=== PATIENT | female | born 1950 | race Caucasian/White ===

== ENCOUNTER 2019-02-13 21:54 | Outpatient (REF) | payer MEDICARE, BC, SELFPAY ==
[2019-02-13 23:12] LABS: ALT 33 U/L (12-78); AST 23 U/L (15-37); Albumin 3.9 g/dL (3.4-5.0); Alkaline Phosphatase 57 U/L (46-116); Anion Gap 9.1 mmol/L (3-11); BUN 19 mg/dL (7-18); Bilirubin, Total 0.3 mg/dL (0.2-1.0); CO2 27.9 mmol/L (21.0-32.0); CREATININE 0.78 mg/dL (0.55-1.02); Calcium 8.9 mg/dL (8.5-10.1); Chloride 104 mmol/L (98-107); Glucose 91 mg/dL (70-100); Potassium 4.5 mmol/L (3.5-5.1); Sodium 141 mmol/L (136-145)
[2019-02-13 23:18] LABS: Hemoglobin A1C 6.1 % (4.5-6.2)
== END 2019-02-13 22:14 ==
LOC: NCHCN 21:54
PROVIDERS: PCP Physician Assistant Medical; Visit Provider Physician Assistant Medical
DX: R73.01 Impaired fasting glucose (principal)
CPT/HCPCS: 80053; 83036

== ENCOUNTER 2019-02-15 00:39 | Outpatient (CLI) | payer MEDICARE, BC, SELFPAY ==
--- NOTE | 2019-02-15 09:17 | DI.MAMMO_ITS ---
SYMPTOMS/DIAGNOSIS: ADULT PREVENTATIVE CARE, Z00.00, SCREENING, Z12.39 MAMMOGRAM: Mammograms were interpreted according to the usual protocol including computer analysis with CAD system, tomosynthesis and C view imaging. The breasts are of moderate density with fairly symmetrical distribution of fibroglandular tissue. No dominant mass is identified in either breast. There is a group of benign-appearing microcalcifications of the upper outer quadrant of the right breast, which appears stable in comparison with previous examinations including February 2017. No new clumped microcalcifications seen. CONCLUSION: No specific evidence of malignancy at this time. Routine screening examinations are suggested at yearly intervals in this age group according to the ACS/ACR guidelines. Category 1, breast density category B. MQSA ASSESSMENT OF FINDINGS: Negative. Category 1. Patient will receive a letter notifying them of these results. BI-RADS category B. There are scattered areas of fibroglandular density.
--- NOTE | 2019-02-15 09:21 | DI.RAD_ITS ---
SYMPTOM/DIAGNOSIS: RT SHOULDER PAIN, M25.511 RIGHT SHOULDER: Five views were obtained. There are mild hypertrophic degenerative changes of the AC joint. There are osteophytes also noted at the inferior margin of the glenoid and to a lesser degree on the humeral head consistent with degenerative change. Cartilaginous joint space of the glenohumeral joint appears fairly well maintained. CONCLUSION: Degenerative changes as described above.
== END 2019-02-15 00:59 ==
PROVIDERS: PCP Physician Assistant Medical; Visit Provider Physician Assistant Medical
DX: Z00.00 Encounter for general adult medical examination without abnormal findings (principal); Z12.31 Encounter for screening mammogram for malignant neoplasm of breast; M25.511 Pain in right shoulder; M19.011 Primary osteoarthritis, right shoulder
CPT/HCPCS: 77063; 77067; 73030

== ENCOUNTER → 2019-03-13 13:46 | Outpatient (BNVA) | payer MEDICARE, BC, SELFPAY | PROVIDERS: PCP Physician Assistant Medical; Referring Provider Physician Assistant Medical; Visit Provider Student in an Organized Health Care Education/Training Program | DX: M75.81 Other shoulder lesions, right shoulder (principal) | CPT/HCPCS: 20610; 99202; 99204; J1040 ==

== ENCOUNTER → 2019-05-01 12:55 | Outpatient (BNVA) | payer MEDICARE, BC, SELFPAY | PROVIDERS: Referring Provider Physician Assistant Medical; Visit Provider Student in an Organized Health Care Education/Training Program | DX: M75.81 Other shoulder lesions, right shoulder (principal); Z98.890 Other specified postprocedural states | CPT/HCPCS: 99213 ==

== ENCOUNTER → 2019-06-19 09:22 | Outpatient (BNVA) | payer MEDICARE, BC, SELFPAY | PROVIDERS: PCP Physician Assistant Medical; Referring Provider Physician Assistant Medical; Visit Provider Student in an Organized Health Care Education/Training Program | DX: M75.81 Other shoulder lesions, right shoulder (principal); Z98.890 Other specified postprocedural states | CPT/HCPCS: 99213 ==

== ENCOUNTER 2019-06-28 01:02 | Outpatient (CLI) | payer MEDICARE, BC, SELFPAY ==
--- NOTE | 2019-06-28 15:35 | DI.MRI_ITS ---
EXAM: MR UPPER JOINT RT WO CLINICAL HISTORY: ? rotator tear, rt shoulder pain, M25.511.,decreased range of motion TECHNIQUE: Multiplanar multisequence MRI was performed. The examination was carried out according to the usual protocol. COMPARISON: No exams were available for comparison FINDINGS: A full-thickness tear of the supraspinatus tendon and infraspinatus tendon measuring up to 2.1 cm AP is noted. There is a soft tissue 1.8 cm tendon retraction. The infraspinatus demonstrates additional mild tendinopathy more posteriorly. There is very mild subscapularis tendinopathy. The teres minor is intact. The biceps long head is intact and is normal in position. The glenohumeral ligament is unremarkable. There is no evidence of a gross tear of the glenoid labrum . The glenohumeral articular cartilage is intact. Mild degenerative bony changes are identified. Ther e is a very small glenohumeral joint effusion. The muscles are unremarkable. Note is made of a small fluid collection in the subacromial and deltoid bursa. IMPRESSION: Degenerative changes are identified. There is rotator cuff tendinopathy including a contiguous full- thickness tear of the supra and infraspinatus tendons. Very small glenohumeral joint effusion with a small fluid collection in the subacromial subdeltoid bursae is identified.
--- NOTE | 2019-06-28 16:03 | DI.VRAD_ITS ---
PROCEDURE INFORMATION: Exam: MR Right Upper Extremity Joint Without Contrast, Shoulder Exam date and time: 06/28/2019 3:46 PM Clinical history: 69 years old, female; Right; Patient HX: ? Rotator cuff tear, RT shoulder pain, decreased rom. TECHNIQUE: Imaging protocol: MR of the Right upper extremity without contrast. Exam focused on the shoulder. COMPARISON: CR XR shoulder RT complete 2+V 02/15/2019 9:21 AM FINDINGS: TENDONS: Supraspinatus: A contiguous full-thickness tear involves the supraspinatus and infraspinatus tendons, measuring up to 2.1 cm AP, with soft tissue 1.8 cm tendon retraction. Infraspinatus: The infraspinatus demonstrates additional mild tendinopathy more posteriorly. Subscapularis: There is very mild subscapularis tendinopathy. Teres minor: Unremarkable. No evidence of tear. Biceps brachii, long head: Intact and normal in position. LIGAMENTS: Glenohumeral: Unremarkable. Glenoid labrum: No gross tear of the glenoid labrum is evident. Cartilage: The glenohumeral articular cartilage is intact. Bones/joints: There is mild acromioclavicular arthrosis. There is very mild osteophyte formation about the glenohumeral joint. There are mild productive and degenerative cystic changes along the greater tuberosity. Fluid: There is a very small glenohumeral joint effusion. Muscles: Unremarkable. Soft tissues: Small fluid is present in the subacromial, subdeltoid bursa. IMPRESSION: 1. Degenerative changes as described. 2. Rotator cuff tendinopathy as described, including contiguous full-thickness tear of the supraspinatus and infraspinatus tendons. 3. Very small glenohumeral joint effusion with small fluid in the subacromial, subdeltoid bursa. Dictated and Authenticated by: Mahendra Vega MD. Ordering:GERSON Frey MD
== END 2019-06-28 01:22 ==
PROVIDERS: PCP Physician Assistant Medical; Visit Provider Student in an Organized Health Care Education/Training Program
DX: M25.511 Pain in right shoulder (principal); M75.101 Unspecified rotator cuff tear or rupture of right shoulder, not specified as traumatic; M19.011 Primary osteoarthritis, right shoulder; M25.411 Effusion, right shoulder
CPT/HCPCS: 73221

== ENCOUNTER → 2019-07-06 09:43 | Outpatient (BNVA) | payer MEDICARE, BC, SELFPAY | PROVIDERS: PCP Physician Assistant Medical; Referring Provider Physician Assistant Medical; Visit Provider Student in an Organized Health Care Education/Training Program | DX: M75.121 Complete rotator cuff tear or rupture of right shoulder, not specified as traumatic (principal); Z98.890 Other specified postprocedural states | CPT/HCPCS: 99213 ==

== ENCOUNTER → 2019-07-11 13:39 | Outpatient (BNVA) | payer MEDICARE, BC, SELFPAY | PROVIDERS: PCP Physician Assistant Medical; Referring Provider Physician Assistant Medical; Visit Provider Student in an Organized Health Care Education/Training Program | DX: M75.121 Complete rotator cuff tear or rupture of right shoulder, not specified as traumatic (principal); M75.51 Bursitis of right shoulder; M75.21 Bicipital tendinitis, right shoulder | CPT/HCPCS: 99214 ==

== ENCOUNTER 2019-07-20 05:53 | Day surgery (SDC) | payer MEDICARE, BC, SELFPAY ==
[2019-07-20] VITALS (8 sets, daily range): BP systolic 92–135; BP diastolic 50–88; PULSE 67–80; RESP 14–20; TEMP 36.1–36.7; O2SAT 93–98
[2019-07-20] MEDS: Lactated Ringers 1,000 ML 100 ML IV (06:45)
--- NOTE | 2019-07-20 07:01 | W.PM.DSUDISC ---
Discharge Plan Disposition Patient Disposition: HOME Condition: Stable Discharge Details Reason For Visit: Right rotator cuff surgery Attending Provider: Christiano Correia Primary Care Provider: Chelsea Santillan Home Meds and New Rx's Prescriptions: New aspirin 81 mg tablet,delayed release (DR/EC) 81 mg PO DAILY Qty: 30 RF: 0 naproxen 250 mg tablet 250 mg PO BID PRN (Reason: pain, moderate) Qty: 60 RF: 0 oxycodone 5 mg tablet 5 mg PO Q4H PRN (Reason: pain, severe) Qty: 22 RF: 0 Continued alendronate [Fosamax] 70 mg tablet 70 mg PO QWEEK RF: 0 multivitamin Tablet 1 tab PO DAILY RF: 0 calcium carbonate [Calcium 500] 500 mg calcium (1,250 mg) Tablet RF: 0 acetaminophen [Tylenol] 325 mg Capsule 325 mg PO ONCE PRNRF: 0 Discontinued ibuprofen [Advil] 200 mg Tablet 200 mg PO PRN PRNRF: 0 Discharge Instructions Additional Instructions: Surgery: Shoulder arthroscopy with rotator cuff repair and biceps tenodesis Activity: You should keep your arm at your side in the strike zone at all times except for physical therapy. Do not try to lift or raise your arm using your own muscles. You should use the sling whenever you are out of the house. You may have to adjust the abduction pillow or remove it for comfort. At home it is best to remove the sling and rest the arm on a pillow at your side or support the operative side with your other hand. You may allow the arm to dangle at your side. A physical therapy prescription will be provided separately. See prescribed medications above. You may use [id number] Tylenol (acetaminophen) as needed for mild pain. Also, recommend Colace (docusate) as a stool softener as surgery and pain medicine cause constipation. Dressings: Leave all dressings in place for 2-3 days. May then remove and leave open to air or cover incisions with Band-Aids. Sutures will be removed in the office. May shower after 5 days. Follow-up: 10-[address] Correia Please call the office during business hours with any questions or concerns. Let us know right away if you develop any redness, drainage, fevers, chest pain, or trouble breathing. Do not drink alcohol or drive for at least 24 hours after anesthesia. Referrals: Christiano Correia MD [ [facility] STAFF PHYSICIAN] - Discharge Orders Discharge Orders: Discharge Order (Routine); Ordered 07/20/19 Ordered By: Christiano Correia DS: Diagnosis Discharge Diagnosis (1) Complete tear of right rotator cuff: Status: Acute (2) Bursitis of right shoulder: Status: Acute (3) Tendonitis of long head of biceps brachii of right shoulder: Status: Acute
--- NOTE | 2019-07-20 07:13 | W.PM.OP ---
Date of service: 07/20/19 Time of Service: 12:38 Operative Note Operative Note DATE OF PROCEDURE: 07/20/19 PRE-OP DIAGNOSIS: Right shoulder: 1. Rotator cuff tear 2. LHB tendinopathy 3. Bursitis 4. Labral tear POST-OP DIAGNOSIS: same PROCEDURE: Right shoulder: 1. Extensive debridement, CPT# 41815. This involved using arthroscopic hand instruments, power instruments, and radiofrequency instruments to debride areas of labral tearing, synovitis, and chondromalacia within the glenohumeral joint and subacromial region. 2. Arthroscopic biceps tenodesis, CPT# 84859. This involved reattaching the long head of the biceps tendon to the proximal humerus intra-articularly at the top of the bicipital groove using an anchor and sutures at the correct tension. 3. Subacromial decompression, CPT# 39446. This involved releasing the coraco-acromial ligament using a radiofrequency wand, using a high-speed shaver to complete a bursectomy, and using a high-speed galina to complete removal of bone spurs on the undersurface of the acromion. 4. Rotator cuff repair, CPT# 29444. This involved repair of the subscapularis, supraspinatus, and infraspinatus using anchors and sutures to reattach the rotator cuff back to the footprint of the lesser and greater tuberosities. The bookkeeping assistant was medically required in order to help assist in techniques above, which require positioning the arm, holding the arthroscope, and manipulating 2 to 4 instruments and sutures at the same time. This cannot be done without the help of an experienced bookkeeping assistant. SURGEON: Christiano Correia SOFTWARE QA SYSTEM SPECIALIST: Marty Meyer ANESTHESIA: GETA and regional ESTIMATED BLOOD LOSS: 30 PATHOLOGY: none sent COMPLICATIONS: None Patient was transported to: PACU Patient's condition: stable Implants: Arthrex: 4.75mm SwiveLocks x 8 Indications: The patient was diagnosed with the above conditions and appropriately indicated for surgical intervention. Please see complete medical record for details. Findings: Exam under anesthesia: Full range of motion of the right shoulder equal and symmetric to the left side. Glenohumeral joint: Upper border subscapularis tearing, long head of the biceps tendinitis and partial tearing, disruption of the biceps sling, chondromalacia adjacent to the lesser tuberosity from a subluxated biceps, extensive synovitis anteriorly and posteriorly, anterior superior and posterior labral tearing and fraying. Subacromial space: Extensive bursitis, moderately sized bone spur on the underside of the acromion, large supraspinatus and infraspinatus delaminated and retracted tendon tears. Procedure Description: The patient was taken to the operating room and transferred to the operating room table. The correct patient, procedure, and side of the procedure were all verified prior to induction of general anesthesia. While under anesthesia, bilateral shoulders were examined. The patient was positioned in the beachchair position. All bony prominences were well-padded. Preoperative antibiotics were administered. The shoulder was prepped and draped in the usual sterile fashion. A diagnostic arthroscopy of the complete glenohumeral joint was performed first from the posterior portal and then from the anterior portal with the above findings noted. A small shaver was used to debride areas of synovitis anteriorly and posteriorly as well as the labral tears anteriorly superiorly and posteriorly. The shaver was also used about the lesser tuberosity to debride areas of chondromalacia and prepare the lesser tuberosity bone footprint for tendon repair. Due to patient age and function the decision was made to incorporate the biceps tenodesis into the subscapularis repair via a loop attack technique done arthroscopically. A superior anterior lateral rotator interval portal was made to assist with this repair. A suture tape fiber tape suture was used to loop around long head of the biceps tendon and then a bird's beak suture passer was used to pass the free end of this since loop through the tendon body. The biceps was released from the superior labrum and retracted laterally out of the way of the subscapularis tendon. A a suture passer was then used to pass another suture tape fiber link through the upper border of the subscapularis tear. Traction on the suture was then used to reduce the tear while placing a fiber tape more medially and inferiorly through the subscapularis tendon. Both the repair sutures for the subscapularis and the repair suture for the biceps tenodesis were brought out the anterior portal cannula. A punch was used to localize placement of our anchor. These 3 sutures loaded up on a 4.75 mm swivel lock anchor and individually tensioned appropriately as anchor was fixated to the lesser tuberosity. Repair of both of these tendons was examined under shoulder motion and probed and found to be secure and stable. I then went subacromial and completed an extensive bursectomy and moderately sized bony decompression of the underside of the acromion. The rotator cuff was then inspected. I established a lateral 50 yard line portal and a posterior superior lateral portal with cannulas. I inspected and debrided extensive supraspinatus and infraspinatus tearing and found there to be a greater than 3 cm large retracted tear comprised of multiple delaminated layers of thin tissue. The greater tuberosity footprint from the articular margin laterally was debrided of scar tissue using a combination of power and radiofrequency ablator. Tissue mobilizers were used to mobilize the different layers of the rotator cuff tear. Started by placing 3 Medial Row anchors each loaded with fiber tape. The fiber tapes were passed through at the appropriate corresponding location in the rotator cuff tendon using a suture handoff technique and with an bookkeeping assistant helping to ensure that all delaminated layers were incorporated appropriately. The middle and anterior row anchors sutures were brought out the anterior portal. The posterior anchor sutures were brought at the posterior portal. Attention was then turned to reducing the supraspinatus infraspinatus without too much tension across the greater tuberosity footprint. This was done using 4 fiber link sutures passed in cinch mode using a scorpion suture passer anterior posterior and between the 3 Middle Row anchors. All for the sutures were brought out the lateral cannula and reduction was per visually confirmed prior to punching and then fixating these to a middle row anchor. Next lateral bursa was ablated from the proximal humerus to clear visualization for the lateral row anchors. In an expansion bridge fashion the medial row fiber tapes were sequentially brought out and fixated laterally to 3 additional anchors completing the reduction compression double row repair. An additional fiber tape had been added most posteriorly and laterally to incorporate additional infraspinatus tissue into the most posterior lateral anchor. The repair was inspected through a range of motion and found to be stable with secure tissue fixation. The shoulder was drained of arthroscopic fluid. All portal sites were copiously irrigated. These incisions were closed using 3-0 nylon in a portal [id number] fashion, deeper larger portals for the cannulas subcutaneous tissue was closed using 3-0 Monocryl in a buried interrupted fashion, all portals were covered with Xeroform, dry gauze, and ABDs. The dressings were covered and secured with foam tape. The operative extremity was placed into a sling for immobilization. The patient awoke from anesthesia without complication and was transferred to the recovery room in a stable condition.
[2019-07-20] MEDS: ceFAZolin 2 GM/50 ML BAG IVPB (08:05)
[2019-07-20] MEDS: EPINEPHrine 1 MG/ML AMP pres-free (10:42)
== END 2019-07-20 14:31 | disposition home or self-care (01) ==
PROVIDERS: PCP Physician Assistant Medical; Visit Provider Student in an Organized Health Care Education/Training Program
PROC: (CPT 23430; principal; 2019-07-20 07:30)
PROC: (CPT 29827; 2019-07-20 07:30)
DX: M75.121 Complete rotator cuff tear or rupture of right shoulder, not specified as traumatic (principal); M75.51 Bursitis of right shoulder; M75.21 Bicipital tendinitis, right shoulder; M65.811 Other synovitis and tenosynovitis, right shoulder; M75.91 Shoulder lesion, unspecified, right shoulder; M94.211 Chondromalacia, right shoulder; S43.431A Superior glenoid labrum lesion of right shoulder, initial encounter; X58.XXXA Exposure to other specified factors, initial encounter; M75.81 Other shoulder lesions, right shoulder
CPT/HCPCS: 29827; 29828; 29823; 29826; C1713; J0171; J0690; J1100; J1885; J2370; J2405; L3670

== ENCOUNTER → 2019-08-01 13:33 | Outpatient (BNVA) | payer MEDICARE, BC, SELFPAY | PROVIDERS: PCP Physician Assistant Medical; Referring Provider Physician Assistant Medical; Visit Provider Student in an Organized Health Care Education/Training Program | DX: Z47.89 Encounter for other orthopedic aftercare (principal); M75.121 Complete rotator cuff tear or rupture of right shoulder, not specified as traumatic; M75.51 Bursitis of right shoulder; M75.21 Bicipital tendinitis, right shoulder ==

== ENCOUNTER → 2019-08-29 12:58 | Outpatient (BNVA) | payer MEDICARE, BC, SELFPAY | PROVIDERS: PCP Physician Assistant Medical; Referring Provider Physician Assistant Medical; Visit Provider Student in an Organized Health Care Education/Training Program | DX: M75.121 Complete rotator cuff tear or rupture of right shoulder, not specified as traumatic (principal); M75.51 Bursitis of right shoulder; M75.21 Bicipital tendinitis, right shoulder ==

== ENCOUNTER → 2019-10-17 10:54 | Outpatient (BNVA) | payer MEDICARE, BC, SELFPAY | PROVIDERS: PCP Physician Assistant Medical; Referring Provider Physician Assistant Medical; Visit Provider Student in an Organized Health Care Education/Training Program | DX: Z47.89 Encounter for other orthopedic aftercare (principal); M75.121 Complete rotator cuff tear or rupture of right shoulder, not specified as traumatic; M75.51 Bursitis of right shoulder; M75.21 Bicipital tendinitis, right shoulder ==

== ENCOUNTER → 2020-01-23 09:00 | Outpatient (BNVA) | payer MEDICARE, BC, SELFPAY | PROVIDERS: PCP Physician Assistant Medical; Referring Provider Physician Assistant Medical; Visit Provider Student in an Organized Health Care Education/Training Program | DX: M75.121 Complete rotator cuff tear or rupture of right shoulder, not specified as traumatic (principal); M75.51 Bursitis of right shoulder; M75.21 Bicipital tendinitis, right shoulder; Z47.89 Encounter for other orthopedic aftercare | CPT/HCPCS: 99213 ==

== ENCOUNTER 2020-03-26 00:41 | Outpatient (CLI) | payer MEDICARE, BC, SELFPAY ==
--- NOTE | 2020-03-26 | DI.MAMMO_ITS ---
EXAM: MAMMO SCREENING CLINICAL HISTORY: SCREENING, [facility], Z00.00 TECHNIQUE: Mammograms were interpreted according to the usual protocol including computer analysis w [employer] CAD system, tomosynthesis and C-view imaging. COMPARISON: FINDINGS: The breasts are heterogeneously dense. No dominant mass is identified in either breast. There is a group of microcalcifications of the upper outer quadrant of the left breast which may have shown some interval change comparison with prior studies including February 2019, additional new microcalcifications and possible caridad-shaped forms may be present. Magnification spot compression views requested for fu rther exam evaluation. Breast ultrasound also recommended. Additionally, in the right breast there is a questionable focal area of new nodularity projected in t he central lateral portion of the breast on cc view. Spot compression view of this area and CC proje cted is is requested as well along with breast ultrasound of the right breast. IMPRESSION: Additional mammographic views of both breasts and bilateral breast ultrasound requested as described above. BI-RADS Cat 0 - Assessment Incomplete: Need additional imaging evaluation Breast Density - Category C - Heterogeneously dense
== END 2020-03-26 01:01 ==
PROVIDERS: PCP Physician Assistant Medical; Visit Provider Physician Assistant Medical
DX: Z12.31 Encounter for screening mammogram for malignant neoplasm of breast (principal); R92.8 Other abnormal and inconclusive findings on diagnostic imaging of breast
CPT/HCPCS: 77063; 77067

== ENCOUNTER 2020-04-04 00:39 | Outpatient (CLI) | payer MEDICARE, BC, SELFPAY ==
--- NOTE | 2020-04-04 | DI.US_ITS ---
EXAM: MG MAMMO SCREEN CALL BACK BI CLINICAL HISTORY: F/U MAMMO, MICROCALCIFICATONS LT, NODULARITY RT. TECHNIQUE: Craniocaudal and mediolateral oblique Full Field Digital Mammography views of the bilater al breast with Computer Aided Diagnosis followed by Tomosynthesis and bilateral breast ultrasound. COMPARISON: Priors available for comparison. FINDINGS: Mammography/Tomosynthesis: Masses/Architectural Distortion: In the right breast, the area of concern shows no persistent discret e mass. Microcalcifictions: There is again seen of cluster of microcalcifications in the upper-outer quadrant of the left breast. Some of the calcifications have a caridad like appearance. Skin Thickening/Nipple Retraction: None. Right breast US: Echotexture: Normal appearance of the glandular tissue. Shadowing: No suspicious foci. Cyst: None. Solid lesions: None seen. Ductal dilation: None. Left breast US: Echotexture: Normal appearance of the glandular tissue. Shadowing: No suspicious foci. Cyst: None. Solid lesions: None seen. Ductal dilation: None. IMPRESSION: 1. Increase number of microcalcifications in the upper-outer quadrant of the left breast with some va riability in size and appearance. Biopsy is recommended for further evaluation. 2. No suspicious abnormalities are seen in the right breast. 3. The findings were discussed with the patient and the primary care provider on the date of the exam ination. BI-RADS Category 4 - Suspicious Abnormality: Biopsy should be considered Breast Density - Category C - Heterogeneously dense The mammogram demonstrates the patient's breast tissue is dense. Dense breast tissue is very common a nd is not abnormal but dense breast tissue can make it harder to find cancer on a mammogram. Also, de nse breast tissue may increase their breast cancer risk. This information about the result of the [facility] [place] was provided to the patient to raise their awareness. Use this report when you speak wi th the patient about their risks for breast cancer, which includes their family history. At that time , you may recommend for more screening tests (Ultrasound or MRI) as they might be useful based on the ir risk. A negative radiographic report should not delay biopsy if a dominant or clinically suspicious mass is present. Up to ten percent of cancers are not identified on mammography. A negative report may reinforce clinical impression. Adenosis and dense breasts may obscure an underlying neoplasm. False positive reports average 6 to 10%. Patient will receive a letter notifying them of these results.
== END 2020-04-04 00:59 ==
PROVIDERS: PCP Physician Assistant Medical; Visit Provider Physician Assistant Medical
DX: Z12.31 Encounter for screening mammogram for malignant neoplasm of breast (principal); R92.8 Other abnormal and inconclusive findings on diagnostic imaging of breast; N63.21 Unspecified lump in the left breast, upper outer quadrant; N60.81 Other benign mammary dysplasias of right breast
CPT/HCPCS: 76642; 77063; 77067

== ENCOUNTER 2020-05-13 16:33 | Outpatient (REF) | payer MEDICARE, BC, SELFPAY ==
[2020-05-15 10:24] LABS: Campylobacter PCR Negative (Negative); Salmonella PCR Negative (Negative); Shiga Toxin PCR Negative (Negative); Shigella/Enteroinvasive Ecoli Negative (Negative)
== END 2020-05-13 16:53 ==
LOC: NCHCN 16:33
PROVIDERS: PCP Physician Assistant Medical; Visit Provider Physician Assistant Medical
DX: R19.7 Diarrhea, unspecified (principal)
CPT/HCPCS: 87329; 87505; 83630; 87324

== ENCOUNTER → 2020-07-23 08:59 | Outpatient (BNVA) | payer MEDICARE, BC, SELFPAY | PROVIDERS: PCP Physician Assistant Medical; Visit Provider Student in an Organized Health Care Education/Training Program | DX: Z47.89 Encounter for other orthopedic aftercare (principal); M75.51 Bursitis of right shoulder; M75.21 Bicipital tendinitis, right shoulder | CPT/HCPCS: 99213 ==

== ENCOUNTER 2022-02-03 19:05 | Outpatient (REF) | payer MEDICARE, BC, SELFPAY ==
[2022-02-03 16:39] LABS: ALT 35 U/L (14-59); AST 22 U/L (15-37); Albumin 3.8 g/dL (3.4-5.0); Alkaline Phosphatase 81 U/L (46-116); BUN 24 mg/dL (7-18); Bilirubin, Total 0.5 mg/dL (0.2-1.0); CREATININE 0.8 mg/dL (0.55-1.02); Calcium 8.9 mg/dL (8.5-10.1); Calculated LDL 104 mg/dL (<100); Chloride 105 mmol/L (98-107); Cholesterol 220 mg/dL (<200); Glucose 95 mg/dL (74-106); HDL Cholesterol 101 mg/dL (40-60); Potassium 4.3 mmol/L (3.5-5.1); Sodium 141 mmol/L (136-145); Total Protein 7.1 g/dL (6.4-8.2); Triglyceride 79 mg/dL (<150)
[2022-02-03 16:47] LABS: Hemoglobin A1C 6.1 % (<5.7)
== END 2022-02-03 19:06 | disposition home or self-care (01) ==
LOC: NCHCN 19:05
PROVIDERS: PCP Physician Assistant Medical; Visit Provider Physician Assistant Medical
DX: Z00.00 Encounter for general adult medical examination without abnormal findings (principal)
CPT/HCPCS: 80053; 80061; 83036

== ENCOUNTER → 2022-03-19 02:12 | Outpatient (CLI) | payer MEDICARE, BC, SELFPAY ==
--- NOTE | 2022-03-19 12:00 | DI.MAMMO_ITS ---
Exam(s) MAMMO SCREENING EXAM: MAMMO SCREENING CLINICAL HISTORY: SCREENING, Z12.31; [facility], Z00.00. TECHNIQUE: Bilateral full field digital CC and MLO mammographic images were obtained with 3D tomosyn thesis and utilizing computer aided detection (CAD). COMPARISON: Prior mammograms were reviewed, the most recent being . FINDINGS: March 2020 and April 2020. This patient subsequently underwent biopsy of a group of microcalcification s in the upper-outer quadrant of the left breast. Biopsy marker clip in the upper-outer quadrant of the left breast is noted and there are no remaining microcalcifications this region. There are no malignant-appearing microcalcification groups in eith er breast. Small benign-appearing nodule anterior to this level in the left breast is unchanged from prior studi es and has the appearance of a benign intramammary lymph node. There are no new spiculated masses in either breast. There is no significant architectural distortion nor skin thickening-retraction. IMPRESSION: Benign findings. No radiographic evidence of malignancy. BI-RADS Category 2 - Benign Findings Breast Density - Category C - Heterogeneously dense Breast density Category C or D implies that the patient has dense breast tissue. Dense breast tissue can make it harder to find cancer on a mammogram. Dense breast tissue is also associated with an incr eased risk of breast cancer. This information about the result of the mammogram report was provided to the patient to raise their awareness. Use this report when you speak with the patient about their risks for breast cancer, which includes their family history. At that time, you may recommend additional screening tests (Ultrasoun d or MRI) as these tests may add significant information. A negative radiographic report should not delay biopsy if a dominant or clinically suspicious mass is present. Up to ten percent of cancers are not identified on mammography. A negative report may reinforce clinical impression. Adenosis and dense breasts may obscure an underlying neoplasm. False positive reports average 6 to 10%. Patient will receive a letter notifying them of these results.
== END ==
PROVIDERS: PCP Physician Assistant Medical; Visit Provider Physician Assistant Medical
DX: Z12.31 Encounter for screening mammogram for malignant neoplasm of breast (principal); Z98.890 Other specified postprocedural states; N60.82 Other benign mammary dysplasias of left breast
CPT/HCPCS: 77063; 77067

== ENCOUNTER 2022-05-14 15:41 | Outpatient (REF) | payer MEDICARE, BC, SELFPAY ==
[2022-05-14 15:04] LABS: ALT 29 U/L (14-59); AST 22 U/L (15-37); Albumin 3.7 g/dL (3.4-5.0); Alkaline Phosphatase 72 U/L (46-116); Anion Gap 7.8 mmol/L (3-11); BUN 19 mg/dL (7-18); Bilirubin, Total 0.6 mg/dL (0.2-1.0); CO2 29.2 mmol/L (21.0-32.0); CREATININE 0.9 mg/dL (0.55-1.02); Calcium 9.1 mg/dL (8.5-10.1); Calculated LDL 64 mg/dL (<100); Chloride 105 mmol/L (98-107); Cholesterol 169 mg/dL (<200); Glucose 102 mg/dL (74-106); HDL Cholesterol 93 mg/dL (40-60); Potassium 4.8 mmol/L (3.5-5.1); Sodium 142 mmol/L (136-145); Total Protein 7.5 g/dL (6.4-8.2); Triglyceride 63 mg/dL (<150)
== END 2022-05-14 15:42 | disposition home or self-care (01) ==
LOC: NCHCN 15:41
PROVIDERS: PCP Physician Assistant Medical; Visit Provider Physician Assistant Medical
DX: E78.5 Hyperlipidemia, unspecified (principal)
CPT/HCPCS: 80053; 80061

== ENCOUNTER 2023-05-04 18:40 | Outpatient (REF) | payer MEDICARE, BC, SELFPAY ==
[2023-05-04 19:45] LABS: Hemoglobin A1C 5.8 % (<5.7)
[2023-05-04 19:56] LABS: ALT 21 U/L (14-59); AST 21 U/L (15-37); Albumin 3.5 g/dL (3.4-5.0); Alkaline Phosphatase 74 U/L (46-116); Anion Gap 6.6 mmol/L (3-11); BUN 19 mg/dL (7-18); Bilirubin, Total 0.4 mg/dL (0.2-1.0); CO2 28.4 mmol/L (21.0-32.0); Calcium 8.9 mg/dL (8.5-10.1); Calculated LDL 82 mg/dL (<100); Chloride 106 mmol/L (98-107); Cholesterol 198 mg/dL (<200); Estimated GFR 58.75 (mL/min/1.73m2); Glucose 129 mg/dL (74-106); HDL Cholesterol 96 mg/dL (40-60); Potassium 4.2 mmol/L (3.5-5.1); Sodium 141 mmol/L (136-145); TSH (W/Ref FT4) 2.73 uIU/mL (0.36-3.74); Total Protein 7.2 g/dL (6.4-8.2); Triglyceride 101 mg/dL (<150)
== END 2023-05-04 18:41 | disposition home or self-care (01) ==
LOC: NCHCN 18:40
PROVIDERS: PCP Physician Assistant Medical; Visit Provider Physician Assistant Medical
DX: E78.5 Hyperlipidemia, unspecified (principal); R73.03 Prediabetes; Z90.89 Acquired absence of other organs; E89.0 Postprocedural hypothyroidism
CPT/HCPCS: 80053; 80061; 83036; 84443